=== PATIENT | female | born 1950 | race Caucasian/White ===

== ENCOUNTER → 2023-11-20 10:57 | Outpatient (REF) | payer MEDICARE, SELFPAY | LOC: RAD 10:57 | PROVIDERS: ATTENDING PHYSICIAN Family Medicine | DX: M85.80 Other specified disorders of bone density and structure, unspecified site (principal); S22.000D Wedge compression fracture of unspecified thoracic vertebra, subsequent encounter for fracture with routine healing; Z78.0 Asymptomatic menopausal state; M81.0 Age-related osteoporosis without current pathological fracture | CPT/HCPCS: 77080 ==